=== PATIENT | male | born 1965 | race Caucasian/White ===

== ENCOUNTER 2018-09-14 16:49 | Inpatient (IN) | payer MEDICAID ==
[~2018-09-14] VITALS: Ht 167.6 cm; Wt 78.9 kg
[~2018-09-14 16:49] MED LIST: BENA20TA PO; METO100T33 PO
[2018-09-14 16:59] VITALS: BP 142/101
--- NOTE | 2018-09-14 17:04 | NUR ---
BIB SELF. AAO X4. C/O ANXIETY AND "CARDIAC PROBLEMS". PT STATES HE LOST HIS PLACE OF RESIDENCE AND HIS JOB. PT STATES HE FEELS ANXIOUS AND IS WORRIED THAT HIS HEART RATE IS HIGH AND B/P HIGH. PT STATES THAT HURTING HIMSELF HAS CROSSED HIS MIND AND HAS AN INDEFINITE, VAGUE PLANS. SAFETY PRECAUTIONS INITIATED. TATYANA PINON NOTIFIED. HOB UP. BED SIDE RAILS UP X1. ON LOW BED POSITION, LOCKED.
--- NOTE | 2018-09-14 17:04 | NUR ---
PATIENT AMBULATED TO BED 7.
--- NOTE | 2018-09-14 17:15 | NUR ---
UNABLE TO GIVE URINE AT THIS TIME.
--- NOTE | 2018-09-14 17:20 | NUR ---
DR ROJAS AT PT BEDSIDE
--- NOTE | 2018-09-14 17:32 | NUR ---
DO ROJAS RE-EVALUATING PT
[2018-09-14 17:48] LABS: BASOPHILS % (AUTO) 0.5 % (0.0-2.0); EOSINOPHILS # (AUTO) 0.1 K/uL (0-0.4); EOSINOPHILS % (AUTO) 0.6 % (0.0-4.0); HEMATOCRIT 45.3 % (36-52); HEMOGLOBIN 15.3 g/dL (12.0-18.0); LYMPHOCYTES # (AUTO) 1.1 K/uL (2.0-11.5); MEAN CORPUSCULAR HEMOGLOBIN 28 pg (27-31); MEAN CORPUSCULAR HGB CONC 34 g/dL (33-37); MEAN CORPUSCULAR VOLUME 84.2 fL (80-94); MONOCYTES # (AUTO) 0.4 K/uL (0.8-1.0); MONOCYTES % (AUTO) 5.2 % (1.7-9.3); NEUTROPHILS # (AUTO) 6.7 K/uL (1.8-7.7); NEUTROPHILS % (AUTO) 80.7 % (42.2-75.2); PLATELET COUNT (AUTO) 318 K/uL (140-450); RED BLOOD CELL COUNT(AUTO) 5.38 MIL/uL (4.20-6.10); RED CELL DISTRIBUTION WIDTH 13.6 % (11.6-13.7); WHITE BLOOD COUNT (AUTO) 8.4 K/uL (4.8-10.8)
[2018-09-14] MEDS ORDERED: HYDR12.5 PO (17:52)
[2018-09-14] MEDS ORDERED: SERT50TA1 (17:52)
[2018-09-14] MEDS ORDERED: BENA20TA PO (17:52)
[2018-09-14] MEDS ORDERED: METO100T33 (17:52)
[2018-09-14 17:59] LABS: CARBON DIOXIDE 25.3 mmol/L (21-32); CHLORIDE 107 mmol/L (98-107); CREATININE 1.2 mg/dL (0.7-1.3); GFR ARICAN-AMERICAN 81 mL/min (>90); GLUCOSE 185 mg/dL (74-106); POTASSIUM 3.3 mmol/L (3.5-5.1); SODIUM SERUM 144 mmol/L (136-145); UREA NITROGEN, BLOOD 24 mg/dL (7-18)
[2018-09-14 18:06] LABS: ACETAMINOPHEN < 0.5 ug/ml (10-30); ALBUMIN 3.9 g/dL (3.4-5.0); ASPARTATE AMINOTRANSFERASE 31 U/L (15-37); SALICYLATE < 2.8 mg/dL (2.8-20.0); TOTAL BILIRUBIN 0.3 mg/dL (0.0-1.0)
[2018-09-14 19:07] LABS: APPEARANCE,URINE CLEAR (CLEAR); BILIRUBIN,URINE NEGATIVE (NEGATIVE); BLOOD, URINE NEGATIVE (NEGATIVE); COLOR,URINE YELLOW (YELLOW); LEUKOCYTE ESTERASE ,URINE NEGATIVE (NEGATIVE); NITRITE, URINE NEGATIVE (NEGATIVE); UGLUCOSE NEGATIVE (NEGATIVE)
--- NOTE | 2018-09-14 19:10 | NUR ---
Pt report given to POLLY Johnson. Transfer of care at this time.
--- NOTE | 2018-09-14 19:12 | NUR ---
RECEIVED REPORT FROM POLLY PORTILLO.
[2018-09-14 19:13] LABS: BARBITURATE, URINE NEG. ng/ml (NEG <=200); BENZODIAZEPINE, URINE NEG. ng/mL (NEG <=200); CANNABINOID, URINE NEG. ng/mL (NEG <=50); COCAINE, URINE NEG. ng/mL (NEG <=300); OPIATE, URINE NEG. ng/mL (NEG <=2000); PHENCYCLIDINE SCREEN,URINE NEG. ng/mL (NEG <=25)
--- NOTE | 2018-09-14 19:30 | NUR ---
Patient is awake, alert, with flat affect. Appears to be resting comfortably in bed. Vital Signs within normal limits. Respirations even and unlabored. No complaints at this time.
--- NOTE | 2018-09-14 20:00 | NUR ---
OFFERED PT DINNER. PT DENIES FOOD STATING HE DOESN'T FEEL LIKE EATING AT THIS TIME. PT ACCEPTED JUCIE AND ICE WATER.
--- NOTE | 2018-09-14 21:00 | NUR ---
Patient appears to be resting comfortably in bed. Vital Signs within normal limits. Respirations even and unlabored.
--- NOTE | 2018-09-14 22:36 | NUR ---
REPORT GIVEN TO TELEPSYCH PSYCHIATRIST.
--- NOTE | 2018-09-14 23:00 | NUR ---
SPOKE W/ TELE-PHYCHIATRIST, DR. CORTEZ WHO RECOMMENDS THAT PT BE EVALUATED ON INPATIENT BASIS FOR SI. TANMAY MARTINEZ NOTIFIED.
--- NOTE | 2018-09-14 23:45 | NUR ---
Packet has been received. Call Center will begin working on bed placement for patient. Call Center will notify [facility] if a bed does become available tonight.
[2018-09-14] MEDS ORDERED: DOCUSATE SODIUM 100 MG GELCAP PO PRN (23:55)
[2018-09-14] MEDS ORDERED: HYDROcodone/APAP 5/325 MG 1 TAB TAB PO PRN (23:55)
[2018-09-14] MEDS ORDERED: ACETAMINOPHEN 325 MG TAB PO PRN (23:55)
[2018-09-14] MEDS ORDERED: LORazepam 2 MG/ML VIAL IM/IVP PRN (23:55)
[2018-09-14] MEDS ORDERED: MORPHINE SULFATE 2 MG/ML SYR IVP PRN (23:55)
[2018-09-14] MEDS ORDERED: ONDANSETRON 4 MG/2 ML VIAL IM/IVP PRN (23:55)
[2018-09-14] MEDS ORDERED: ZOLPIDEM 5 MG TAB PO PRN (23:55)
[2018-09-15 00:05] VITALS: BP 133/79
--- NOTE | 2018-09-15 00:05 | NUR ---
RECIEVED PT FROM ER PER WHEELCHAIR ,AWAKE ,ALERT , ORIENTED X4 ,MED SURG ,WITH C/O ANXIETY WITH IV CANNULA ON LFA 20G INTACT AND PATENT. AMBULATORY .MRSA COLLECTED AND SENT TO LAB, V/S STABLE, ADMISSION ASSESSMENT DONE.BED IN LOW POSITION ,SIDE RAILS UP X2.ON SAFETY PRECAUTION.WILL FOLLOW UP ADMITTING ORDER
--- NOTE | 2018-09-15 00:09 | NUR ---
PATIENT ADMITTED TO [facility] ROOM 109-B. UNDER THE CARE OF DR JURADO, REPORT GIVEN TO RN. STABLE DURING WHEELCHAIR TRANSPORT.
--- NOTE | 2018-09-15 00:19 | NUR ---
Called the following contracted psych facilities regarding bed placement. Currently no beds available at this time. [facility], spoke with Tushar. [facility], spoke with Mariama. [facility], spoke with Mare. Packet was faxed. [facility], spoke with Emmie. [facility], spoke with Seymour. [facility], spoke with Brionna. [facility], spoke with Florence. Packet was faxed. Adina Doan [facility], spoke with Shanika. They can not accept patients that are on the medical floor only through ED. Mohamud Larson [facility], spoke with Levi. Call Center will continue to look for placement for patient. Addendum: 09/15/18 at 0434 by oDra Lubin After speaking with patient RN on the floor. Patient was voluntary in the ED for psychiatric admission. At this time patient is admitted to telemetry floor and not medically cleared and is pending to see the psychiatrist. Call Center will hold off on looking for placement and will wait until the telemetry calls the Call Center after evaluation.
[2018-09-15 00:46] LABS: MAGNESIUM 1.9 mg/dL (1.8-2.4); PHOSPHORUS 2.7 mg/dL (2.5-4.9); THYROID STIMULATING HORMONE 0.99 uIU/mL (0.34-3.74)
[2018-09-15 01:02] LABS: PROTHROMBIN TIME 9.9 secs (10.8-13.4)
[2018-09-15] MEDS ORDERED: POTASSIUM CHLORIDE 10 MEQ TABER PO ONE (02:45)
--- NOTE | 2018-09-15 02:54 | NUR ---
CALLED CALL SERVICE AND ABLE TO TALKED TO SCOTTIE. MADE AWARE ABOUT CONSULT FOR SUICIDAL IDEATION .
--- NOTE | 2018-09-15 05:11 | NUR ---
MARIN TERRY .PATIENT SLEEPING .WILL CONTINUE TO MONITOR.
--- NOTE | 2018-09-15 06:48 | NUR ---
CHEST X RAY DONE AT BEDSIDE .NO DISCOMFORT NOTED AT THIS TIME.
--- NOTE | 2018-09-15 07:21 | NUR ---
RECIEVED PT FROM POLISHING PAD MOUNTER RN. PT IS [id number] ,MED SURG ,WITH C/O ANXIETY WITH IV CANNULA ON LFA 20G INTACT AND PATENT. AMBULATORY .MRSA COLLECTED AND SENT TO LAB, V/S STABLE, ADMISSION ASSESSMENT DONE.BED IN LOW POSITION ,SIDE RAILS UP X2.ON SAFETY PRECAUTION.WILL FOLLOW UP ADMITTING ORDER Addendum: 09/15/18 at 0808 by Vinita Weber RN RECIEVED PT FROM POLISHING PAD MOUNTER RN. PT IS AAOX4 ,MED SURG ,WITH C/O ANXIETY WITH IV CANNULA ON LFA 20G INTACT AND PATENT. AMBULATORY. V/S STABLE.BED IN LOW POSITION ,SIDE RAILS UP X2.ON SAFETY PRECAUTION. WILL ROUND FREQUENTLY ON PT. BED IN LOWEST POSITION, CALL LIGHT WITHIN REACH.
--- NOTE | 2018-09-15 07:27 | NUR ---
ENDORSED TO AM SHIFT NURSE FOR CONTINUITY OF CARE. STABLE V/S.
[2018-09-15 07:37] LABS: BASOPHILS # (AUTO) 0.1 K/uL (0.00-0.22); EOSINOPHILS % (AUTO) 0.6 % (0.0-4.0); HEMATOCRIT 42.9 % (36-52); HEMOGLOBIN 14.1 g/dL (12.0-18.0); LYMPHOCYTES # (AUTO) 1.2 K/uL (2.0-11.5); LYMPHOCYTES % (AUTO) 18.6 % (20.5-51.1); MEAN CORPUSCULAR HEMOGLOBIN 28 pg (27-31); MEAN CORPUSCULAR HGB CONC 33 g/dL (33-37); MEAN CORPUSCULAR VOLUME 84.7 fL (80-94); MONOCYTES # (AUTO) 0.7 K/uL (0.8-1.0); MONOCYTES % (AUTO) 10.2 % (1.7-9.3); NEUTROPHILS # (AUTO) 4.4 K/uL (1.8-7.7); NEUTROPHILS % (AUTO) 69.6 % (42.2-75.2); PLATELET COUNT (AUTO) 269 K/uL (140-450); RED BLOOD CELL COUNT(AUTO) 5.06 MIL/uL (4.20-6.10); RED CELL DISTRIBUTION WIDTH 13.5 % (11.6-13.7); WHITE BLOOD COUNT (AUTO) 6.4 K/uL (4.8-10.8)
[2018-09-15 07:39] LABS: ANION GAP 12.3 (8-16); CARBON DIOXIDE 28.8 mmol/L (21-32); CREATININE 1.1 mg/dL (0.7-1.3); POTASSIUM 4.1 mmol/L (3.5-5.1)
[2018-09-15 08:00] VITALS: BP 131/79
--- NOTE | 2018-09-15 08:16 | NUR ---
PATIENT HAS BEEN SCREENED AND CATEGORIZED LOW NUTRITION RISK. PATIENT WILL BE SEEN WITHIN 7 DAYS OF ADMISSION. 09/21/[address]
[2018-09-15 08:31] LABS: CHOL/HDL RATIO 4.6 (1-4.5)
[2018-09-15] MEDS ORDERED: SERTRALINE 50 MG TAB PO SCH (09:00)
--- NOTE | 2018-09-15 09:24 | NUR ---
ADMINISTERED MORPHINE FOR PAIN AND ZOFRAN FOR N/V. PT TOLERATED THEM WELL. ALL OTHER NEEDS CURRENTLY MET. WILL CONTINUE TO ROUND FREQUENTLY ON PT. BED IN LOWEST POSITION, CALL LIGHT WITHIN REACH. Addendum: 09/15/18 at 1338 by Vinita Weber RN WRONG PT.
[2018-09-15] MEDS: METOPROLOL 50 MG TAB PO SCH (10:02)
[2018-09-15] MEDS: HYDROCHLOROTHIAZIDE 25 MG TAB PO SCH (10:03)
[2018-09-15] MEDS: BENAZEPRIL 20 MG TAB PO SCH (10:04)
--- NOTE | 2018-09-15 11:47 | NUR ---
PT RESTING IN BED. NO COMPLAINTS OF SOB OR PAIN. WILL ROUND FREQUENTLY ON PT. BED IN LOW POSITION, CALL LIGHT WITHIN REACH. Addendum: 09/15/18 at 1340 by Vinita Weber RN WRONG PT
--- NOTE | 2018-09-15 13:36 | NUR ---
PT ASKING WHEN EGD PROCEDURE WILL TAKE PLACE. NO SPECIFIC TIME HAS BEEN SET. PT WAS TOLD THIS INFORMATION. SHE VERBALIZED UNDERSTANDING. WILL ROUND FREQUENTLY ON PT. Addendum: 09/15/18 at 1341 by Vinita Weber RN WRONG PT
--- NOTE | 2018-09-15 15:47 | NUR ---
PT RESTING IN BED. SITTER AT BEDSIDE 1:1. NO SIGNS OF PAIN OR DISTRESS AT THIS TIME. WILL CONTINUE TO ROUND FREQUENTLY .
[2018-09-15 16:00] VITALS: BP 118/67
--- NOTE | 2018-09-15 17:34 | NUR ---
PT ASLEEP IN BED. NO SIGNS OF DISTRESS OR PAIN NOTED. SITTER AT BEDSIDE 1:1.
--- NOTE | 2018-09-15 19:30 | NUR ---
RECEIVED BEDSIDE REPORT FROM DAY SHIFT NURSE DAHIANA RN, PT STABLE, NO DISTRESS NOTED, IV TO L FA 20G PATENT, INTACT, SL , PT ON ROOM AIR, NO SOB, PT STATED HAVING NO SUICIDAL IDEATION AT THIS MOMENT, PT CALM AND COOPERATIVE, SITTER AT BEDSIDE, INITIAL ASSESSMENT DONE, ALL SAFETY PRECAUTION MET, CALL LIGHT WITHIN REACH, WILL CONTINUE TO MONITOR.
--- NOTE | 2018-09-15 19:48 | NUR ---
ENDORSED PT TO JIG FILLER FOR CONTINUITY OF CARE. PT IN STABLE CONDITION AT THIS TIME.
--- NOTE | 2018-09-15 21:30 | NUR ---
DR. COREAS AT BEDSIDE TALKING AND EVALUATING PT.
--- NOTE | 2018-09-15 23:28 | NUR ---
PT SLEEPING, V/S TAKEN, WNL, PT CALM AND COOPERATIVE, SITTER AT BEDSIDE, WILL CONTINUE TO MONITOR.
[2018-09-15 23:29] VITALS: BP 126/67
--- NOTE | 2018-09-16 01:28 | NUR ---
PT SLEEPING, NO DISTRESS NOTED, SITTER AT BEDSIDE, WILL CONTINUE TO MONITOR.
--- NOTE | 2018-09-16 07:05 | NUR ---
RECEIVED BEDSIDE REPORT FROM CITY DISPATCH SUPERVISOR NURSE. PATIENT IS AWAKE, ALERT AND ORIENTEDX4. NO SIGNS OF DISTRESS ON RA. SKIN IS INTACT. PATIENT IS AMBULATORY AND CONTINENT. L FA 20G SL. CLEAN, DRY AND INTACT. PATIENT HAS NO COMPLAINTS AT THIS TIME. BED IN LOW POSITION. 1:1 SITTER AT BEDSIDE. WILL CONTINUE TO MONITOR THE PATIENT
[2018-09-16 08:00] VITALS: BP 122/73
[2018-09-16 08:07] LABS: BASOPHILS # (AUTO) 0.1 K/uL (0.00-0.22); BASOPHILS % (AUTO) 1.9 % (0.0-2.0); EOSINOPHILS # (AUTO) 0.1 K/uL (0-0.4); EOSINOPHILS % (AUTO) 1.8 % (0.0-4.0); HEMATOCRIT 45.2 % (36-52); HEMOGLOBIN 15.5 g/dL (12.0-18.0); LYMPHOCYTES # (AUTO) 1.3 K/uL (2.0-11.5); LYMPHOCYTES % (AUTO) 26.2 % (20.5-51.1); MEAN CORPUSCULAR HEMOGLOBIN 29 pg (27-31); MEAN CORPUSCULAR HGB CONC 34 g/dL (33-37); MEAN CORPUSCULAR VOLUME 84.3 fL (80-94); MONOCYTES # (AUTO) 0.4 K/uL (0.8-1.0); MONOCYTES % (AUTO) 8.6 % (1.7-9.3); NEUTROPHILS # (AUTO) 3.1 K/uL (1.8-7.7); NEUTROPHILS % (AUTO) 61.5 % (42.2-75.2); PLATELET COUNT (AUTO) 264 K/uL (140-450); RED BLOOD CELL COUNT(AUTO) 5.36 MIL/uL (4.20-6.10); RED CELL DISTRIBUTION WIDTH 13.3 % (11.6-13.7)
[2018-09-16 08:23] LABS: ANION GAP 12.7 (8-16); CARBON DIOXIDE 28.5 mmol/L (21-32); CREATININE 1.1 mg/dL (0.7-1.3); POTASSIUM 4.2 mmol/L (3.5-5.1)
[2018-09-16 08:31] LABS: MAGNESIUM 1.9 mg/dL (1.8-2.4); PHOSPHORUS 3.6 mg/dL (2.5-4.9)
[2018-09-16] MEDS: BENAZEPRIL 20 MG TAB PO SCH (09:07)
[2018-09-16] MEDS: METOPROLOL 50 MG TAB PO SCH (09:08)
[2018-09-16] MEDS: HYDROCHLOROTHIAZIDE 25 MG TAB PO SCH (09:08)
[2018-09-16] MEDS: ARIPiprazole 10 MG TAB PO SCH (09:09)
--- NOTE | 2018-09-16 09:12 | NUR ---
ADMINISTERED MEDS. EDUCATED ON SIDE EFFECTS. PATIENT TOLERATED WELL. NO COMPLAINTS AT THIS TIME. PATIENT WANTED MORE WATER AND ICE, PROVIDED PATIENT WITH WATER AND ICE. WILL CONTINUE TO MONITOR. 1:1 SITTER AT BEDSIDE
--- NOTE | 2018-09-16 11:57 | NUR ---
PATIENT IS READING A BOOK. NO SIGNS OF DISTRESS. 1:1 SITTER AT BEDSIDE. WILL CONTINUE TO MONITOR
--- NOTE | 2018-09-16 12:30 | NUR ---
PATIENT IS EATING. NO SIGNS OF DISTRESS. WILL CONTINUE TO MONITOR THE PATIENT
--- NOTE | 2018-09-16 14:20 | NUR ---
PATIENT IN ROOM. NO SIGNS OF DISTRESS. 1:1 SITTER AT BEDSIDE. WILL CONTINUE TO MONITOR THE PATIENT
[2018-09-16 16:00] VITALS: BP 101/63
--- NOTE | 2018-09-16 16:40 | NUR ---
PATIENT READING A BOOK. NO SIGNS OF DISTRESS. 1:1 SITTER AT BEDSIDE. WILL CONTINUE TO MONITOR
--- NOTE | 2018-09-16 17:25 | NUR ---
PATIENT WANTED HIS BOOK FROM SECURITY. SECURITY BROUGHT IT TO THE PATIENT
--- NOTE | 2018-09-16 18:25 | NUR ---
Called the following facilities with no bed availability: Joseph [facility], s/w Kaylie [facility], s/w Dilip [facility], s/w Emmie Ibrahim, s/w Dominik Ibrahim, called twice, no answer Adina Doan, s/w Olimpia
--- NOTE | 2018-09-16 19:25 | NUR ---
RECEIVED REPORT AT BEDSIDE FROM ROE RN DAYSHIFT NURSE FOR CONTINUITY OF CARE, PT IN STABLE CONDITION.
--- NOTE | 2018-09-16 19:26 | NUR ---
GAVE BEDSIDE REPORT TO COMPREHENSIVE ADVISOR NURSE. PATIENT ENDORSED IN STABLE CONDITION
--- NOTE | 2018-09-16 20:00 | NUR ---
PT IN BED WITH CALM DEMEANOR. PT REQUESTING A SHOWER AND NEW EAR PLUGS. HE IS AOX4 AND HAS NO C/O OF PAIN OR DISTRESS NOTED. V/S FOLLOWS T 97.4 P 55 R 18 B/P 120/70 02 96% ON ROOM AIR.
--- NOTE | 2018-09-16 21:00 | NUR ---
PT IV SITE ON LEFT F/A 20G NOTED WITH SLIGHT REDNESS AROUND IV SITE. IV SITE WAS DISCONTINUED, CANNULA CAME OUT INTACT. PT THEN AMBULATED TO SHOWER ROOM STEADILY WITH SITTER MAINTAINING SAFETY PRECAUTIONS. PT AGREED TO HAVE A NEW IV SITE PUT IN AFTER THE SHOWER.
--- NOTE | 2018-09-16 21:30 | NUR ---
PT BACK FROM SHOWER ALL SAFETY PRECAUTIONS MAINTAINED. PT AMBULATED STEADILY BACK TO ROOM. AT THIS TIME, PT ASKED IF HE REALLY NEEDED ANY MEDICATION THROUGH THE IV SITE AND IF NOT, HE WOULD RATHER NOT HAVE ANOTHER IV SITE. PT SAID THAT WHEN THEY REALLY NEED TO GIVE HIM MEDICATION VIA IV HE WILL LET THEM PUT IN ANOTHER SITE.
[2018-09-17] VITALS: BP 115/68
--- NOTE | 2018-09-17 00:15 | NUR ---
PT IN BED V/S FOLLOWS T 97.4 P 54 R 18 B/P 115/68 02 98% ON ROOM AIR. SITTER AT BEDSIDE , NO S/S OF PAIN OR DISTRESS NOTED.
--- NOTE | 2018-09-17 03:40 | NUR ---
PT IN BED ASLEEP NO S/S OF PAIN OR DISTRESS NOTED. SITTER AT BEDSIDE.
--- NOTE | 2018-09-17 06:36 | NUR ---
PT SLEEPING IN BED NO S/S OF PAIN OR DISTRESS NOTED.
--- NOTE | 2018-09-17 07:12 | NUR ---
RECEIVED ENDORSEMENT FROM RESERVATIONS AND TICKETING AGENT NURSE. PATIENT IS SLEEPING EASILY AROUSABLE. RESPIRATIONS ARE EVEN AND UNLABORED ON ROOM AIR. DENIES ANY PAIN AT THIS TIME. PLAN OF CARE WAS REVIEWED WITH PATIENT. PATIENT VERBALIZED UNDERSTANDING. SAFETY MEASURES IN PLACE, SITTER AT BEDSIDE.
--- NOTE | 2018-09-17 07:15 | NUR ---
REPORT GIVEN TO ASTER RN DAYSHIFT NURSE AT BEDSIDE FOR CONTINUITY OF CARE, PT IN STABLE CONDITION.
[2018-09-17 08:00] VITALS: BP 122/71
[2018-09-17] MEDS: METOPROLOL 50 MG TAB PO SCH (08:52)
[2018-09-17] MEDS: HYDROCHLOROTHIAZIDE 25 MG TAB PO SCH (08:52)
[2018-09-17] MEDS: BENAZEPRIL 20 MG TAB PO SCH (08:53)
[2018-09-17] MEDS: ARIPiprazole 10 MG TAB PO SCH (08:53)
--- NOTE | 2018-09-17 08:56 | NUR ---
PATIENT IS RESTING IN BED, READING A BOOK. NO SIGNS OF DISTRESS NOTED AT THIS TIME. PATIENT IS CALM AND INTERACTING APPROPRIATELY. NO OTHER NEEDS AT THIS TIME. WILL CONTINUE TO MONITOR.
--- NOTE | 2018-09-17 09:31 | NUR ---
NOTIFIED SECURITY OF PATIENTS REQUEST TO GET HIS WALLET. IS AWARE. PATIENT OBTAINED HIS WALLET
--- NOTE | 2018-09-17 10:05 | NUR ---
PATIENT IS SLEEPING IN BED, EASILY AROUSABLE. NO SIGNS OF DISTRESS NOTED AT THIS TIME. NO OTHER NEEDS AT THIS TIME.
--- NOTE | 2018-09-17 11:30 | NUR ---
PATIENT IS RESTING IN BED. NO SIGNS OF DISTRESS NOTED. NO OTHER NEEDS AT THIS TIME.
--- NOTE | 2018-09-17 11:58 | NUR ---
OBEY 1: 1 AT BEDSIDE, ALLISON, PATIENT CALM AND SLEEPING COMFORTABLY IN HIS SIDE. NO VERBALIZATIONS OF HALLUCINATIONS NOR SUICIDAL IDEATION. Addendum: 09/18/18 at 0033 by Christie Purcell RN WRONG TIME
--- NOTE | 2018-09-17 12:13 | NUR ---
PATIENT IS VISIBLY ANGRY, STATES "THERE IS NOTHING TO ATOP ME FROM LEAVING". C/O THAT HE IS NOT ABLE TO WALK AROUND. PATIENT ALSO REFUSED HIS LUNCH. ATTEMPTED TO CALM DOWN PATIENT AND EXPLAIN THE REASON WHY HE IS NOT ALLOWED TO GO OUT OF ROOM. PATIENT STILL VISIBLY ANGRY AND THREATENING TO LEAVE. CHARGE NURSE WILL SPEAK WITH PATIENT. WILL CONTINUE TO MONITOR.
--- NOTE | 2018-09-17 13:07 | NUR ---
DR. COY CAME TO SEE PATIENT TO EXPLAIN HIS HOLD. PATIENT VERBALIZED UNDERSTANDING.
--- NOTE | 2018-09-17 15:15 | NUR ---
PATIENT IS SLEEPING IN BED, EASILY AROUSABLE. NO DISTRESS NOTED AT THIS TIME. WILL CONTINUE TO MONITOR.
[2018-09-17 16:00] VITALS: BP 120/79
--- NOTE | 2018-09-17 16:10 | NUR ---
PATIENT IS RESTING IN BED READING A BOOK. NO DISTRESS NOTED AT THIS TIME. NO OTHER NEEDS AT THIS TIME.
--- NOTE | 2018-09-17 17:22 | NUR ---
PATIENT IS LAYING DOWN IN BED READING A BOOK. NO SIGNS OF DISTRESS NOTED AT THIS TIME. NO OTHER NEEDS AT THIS TIME.
--- NOTE | 2018-09-17 18:01 | NUR ---
PATIENT IS LAYING DOWN IN BED. NO DISTRESS NOTED AT THIS TIME. NO OTHER NEEDS AT THIS TIME.
--- NOTE | 2018-09-17 19:07 | NUR ---
ENDORSED TO B2B APPOINTMENT SETTER NURSE VERONICA FOR CONTINUITY OF CARE. PATIENT IS STABLE. NO DISTRESS NOTED AT THIS TIME.
--- NOTE | 2018-09-17 19:08 | NUR ---
RECEIVED ENDORSEMENT FROM AM SHIFT NURSE. PATIENT AWAKE, ALERT, ORIENTED X 4. PT IS IN THE ROOM , IN BED READING A BOOK, RESPIRATIONS ARE EVEN AND UNLABORED ON ROOM AIR. DENIES ANY PAIN AT THIS TIME. PLAN OF CARE WAS REVIEWED WITH PATIENT. PATIENT VERBALIZED UNDERSTANDING. SAFETY MEASURES IN PLACE, SITTER AT BEDSIDE.
--- NOTE | 2018-09-17 19:22 | NUR ---
TALK TO PT PT SAID HE HAD NOT SLEPT LAST NIGHT, AND THAT PT NEXT DOOR WAS TALKING TOO MUCH AND HE CAN'T SLEEP. PT ANXIOUS AND REQUESTS FOR ANTI ANXIETY MEDS TONIGHT, SO THAT HE CAN SLEEP. WILL MEDICATE LATER.
[2018-09-17 19:24] VITALS: BP 120/68
--- NOTE | 2018-09-17 19:30 | NUR ---
PT AMBULATORY GOING TO THE BATHROOM, VOIDED 1X
--- NOTE | 2018-09-17 20:38 | NUR ---
ORDERED FOR SHOWER PER PATIENT'S REQUEST.
--- NOTE | 2018-09-17 20:40 | NUR ---
WILL ASSIST PT IN THE SHOWER
--- NOTE | 2018-09-17 21:00 | NUR ---
AT SHOWER, STANDING, AMBULATORY, PT GIVEN GOWN, DRESSED HIMSELF. RETURNED BACK TO ROOM SAFELY.
[2018-09-17] MEDS: LORazepam 1 MG TAB PO PRN (21:45)
--- NOTE | 2018-09-17 21:45 | NUR ---
ADMINISTERED ATIVAN PO ORDERED FOR ANXIETY. PT ANXIOUS, BOTHERED PT'S BY NEXT DOOR CONSTANTLY TALKING AND WALKING TOWARDS SITTER
--- NOTE | 2018-09-17 22:02 | NUR ---
At this time there are still no vacancy at any of the designated facilities
--- NOTE | 2018-09-17 22:30 | NUR ---
PT SLEEPING BUT EASILY AROUSABLE BY NOISES, TOSING AND TURNING TRIED TO MINIMIZE ENVIRONMENTAL NOISE BY LOWERING TV VOLUME OF NEXT DOOR, HALLWAY LIGHTS OFF, ROOM LIGHTS OFF. WILL CONTINUE TO MONITOR Addendum: 09/18/18 at 0035 by Christie Purcell RN TOSSING
--- NOTE | 2018-09-17 23:58 | NUR ---
SITTER 1: 1 AT BEDSIDE, REFINERY OPERATOR POLYMERIZATION PLANT, PATIENT CALM AND SLEEPING COMFORTABLY IN HIS SIDE. NO VERBALIZATIONS OF HALLUCINATIONS NOR SUICIDAL IDEATION.
--- NOTE | 2018-09-18 00:26 | NUR ---
RN, SITTER BACK TO POST, PT SLEEPING AT THIS TIME,COMFORTABLE AND CALM
--- NOTE | 2018-09-18 03:34 | NUR ---
PT SLEEPING AT HIS SIDE,NO COMPLAINTS AT THIS TIME.
[2018-09-18 03:36] VITALS: BP 123/70
--- NOTE | 2018-09-18 03:45 | NUR ---
PT AWAKE, WENT TO THE TOILET VOIDED 2ND TIME
[2018-09-18 04:50] VITALS: BP 135/81
--- NOTE | 2018-09-18 05:00 | NUR ---
PT C/O OF NOISES HE SAID THAT HE WASNT ABLE TO SLEEP FOR 5 DAYS NOW, AND THAT HE WILL MAKE A COMMENT ON THE ENVIRONMENTAL NOISE. ASSURED PT THAT WE TRIED TO KEEP THE NOISE DOWN BUT THERE ARE SOME INEVITABLE NOISE FROM THE [employer], AND THAT HIS ROOM IS NEAR THE NURSES STATION W/ THE MAIN MONITOR FOR ALL CALL LIGHTS. AND NURSES TRYING TO COMMUNICATE W/ THEIR PATIENTS . ALSO HAD A LOT OF PATIENTS WHEELED IN FOR ADMISSION BY THE ED, MIGHT HAVE MADE LOUD NOISES.
[2018-09-18] MEDS: LORazepam 1 MG TAB PO PRN (05:01)
--- NOTE | 2018-09-18 05:01 | NUR ---
GIVEN ATIVAN PO 1 MG Q6 ORDERED.
--- NOTE | 2018-09-18 07:01 | NUR ---
PT AWAKE, ALERT O X 4, AMBULATORY TOWARDS THE BATHROOM. VOIDED AGAIN. PT NO SOB, NO COMPLAINTS OF PAIN, NO HALLUCINATIONS. PT FEELS STILL SLEEPY AND WENT BACK TO BED AFTER. WILL ENDORSE TO NEXT SHIFT
--- NOTE | 2018-09-18 07:10 | NUR ---
RECEIVED BEDSIDE SHIFT REPORT FROM NIGHT NURSE. PT IS RESTING IN BED AOX4 WITH NO COMPLAINTS OF PAIN. LUGGAGE ATTENDANT AT DOOR OF ROOM. PT HAS NO IV. PT IS BREATHING UNLABORED AND SYMMETRICAL. PT HAS NO REQUESTS AT THIS TIME AND STATES HE IS FEELING BETTER TODAY THEN YESTERDAY AND STATES HE HAS NO ANXIETY OR SUICIDAL THOUGHTS AT THIS TIME.
--- NOTE | 2018-09-18 08:35 | NUR ---
Security notified to bring pt's belongings to room d/t 7660 hold discontinued. Addendum: 09/18/18 at 1905 by Ree Fuller RN Wrong time input. Pls omit note.
[2018-09-18] MEDS: BENAZEPRIL 20 MG TAB PO SCH (09:25)
[2018-09-18] MEDS: ARIPiprazole 10 MG TAB PO SCH (09:26)
[2018-09-18] MEDS: METOPROLOL 50 MG TAB PO SCH (09:26)
[2018-09-18] MEDS: HYDROCHLOROTHIAZIDE 25 MG TAB PO SCH (09:27)
--- NOTE | 2018-09-18 11:08 | NUR ---
Spoke with Billy. Requested Billy send packet with hold and nurses notes so call center can send packet to psych facilities
--- NOTE | 2018-09-18 11:30 | NUR ---
FAXED PATIENT MEDICAL INFORMATION, FACE SHEET, 8840 HOLD, PROGRESS NOTES, HISTORY AND PHYSICAL, TO [facility] AT [phone]
[2018-09-18] MEDS ORDERED: ARIP5TAB8 PO (11:47)
--- NOTE | 2018-09-18 12:05 | NUR ---
PATIENT WAS PACING IN DOORWAY OF ROOM. WHEN ASKED IF THE PATIENT NEEDED SOMETHING HE STATED HE WANTED TO KNOW WHY HE WAS STILL HERE. INFORMED PATIENT THAT HE WOULD NEED TO BE SEEN BY THE PSYCHIATRIC DOCTOR REGARDING HIS EXPIRING 5150 BEFORE WE COULD PLAN HIS DISCHARGE. PATIENT STATED HE HAS BEEN HERE LONG ENOUGH AND STARTED SCREAMING THAT HE IS GOING TO LEAVE ANYWAYS AND IS SICK OF BEING HERE. PATIENT LEFT ROOM AND STARTED YELLING AT STAFF THAT HE WAS GOING NO MATTER WHAT. [employer] CALLED AND LOCAL POLICE NOTIFIED. DR. ANSARI CAME TO BEDSIDE AND DISCUSSED PLAN OF CARE WITH PATIENT AND ANSWERED HIS QUESTIONS AND INFORMED HIM OF PENDING CLEARANCE FROM PSYCHIATRIC DOCTOR. PATIENT THEN SITTING IN BED NO LONGER SCREAMING. LOCAL POLICE THEN CAME TO BEDSIDE AND SPOKE TO PATIENT WELL AND ANSWERED HIS QUESTIONS AND EDUCATED HIM ON 5150 HOLD.
--- NOTE | 2018-09-18 12:05 | NUR ---
PER HEAD OF SECURITY ADA, PT STATED " IF YOU DO NOT LET ME GO, NO ONE WILL BE SAFE HERE". [employer] ACTIVATED AND CONTACTED SHANIQUE SWANSON. SPOKE WITH VERÓNICA, STATED THEY ARE ON THEIR WAY. ADA SECURITY MADE AWARE.
--- NOTE | 2018-09-18 13:50 | NUR ---
PT IS LAYING DOWN IN BED WITH NO OBVIOUS SIGNS OF ACUTE DISTRESS.
--- NOTE | 2018-09-18 13:58 | NUR ---
SPOKE WITH LUISANA AT THE [facility]. SHE INFORMED ME THAT NONE OF THE NOTES STATED RATHER OR NOT THE PATIENT WAS MEDICALLY CLEARED. INFORMED HER THAT DR. ANSARI HAD VERBALLY STATED THE PATIENT WAS MEDICALLY CLEAR TO DISCHARGE AND THAT HE WAS REMAINING PENDING CLEARANCE FROM THE PSYCHIATRIC DOCTOR.
--- NOTE | 2018-09-18 15:40 | NUR ---
PT RESTING IN BED. PT IS IN POSITIVE AFFECT WITH NO COMPLAINTS OR REQUESTS AND STATES HE APPRECIATES THE HELP AT THIS TIME. PT HAS NO OBVIOUS SIGNS OF DISTRESS.
[2018-09-18 16:00] VITALS: BP 134/85
--- NOTE | 2018-09-18 16:30 | NUR ---
PT RESTING IN BED NO OBVIOUS SIGNS OF DISTRESS. BREATHING UNLABORED.
[2018-09-18] MEDS ORDERED: METO100T33 PO (16:57)
--- NOTE | 2018-09-18 17:55 | NUR ---
PT LAYING DOWN IN BED NO OBVIOUS SIGNS OF DISTRESS, BREATHING UNLABORED AND SYMMETRICAL.
--- NOTE | 2018-09-18 18:30 | NUR ---
Dr. Metcalf at bedside to see pt. Per Dr. Metcalf, pt is cleared from 5150 & may discharge home. Pt verbalized understanding & agree to wait for discharge papers.
--- NOTE | 2018-09-18 18:35 | NUR ---
Security notified to bring pt's belongings to room d/t 5150 hold discontinued.
--- NOTE | 2018-09-18 18:50 | NUR ---
Written & verbal discharge instructions provided to pt. Pt verbalized understanding & agree with discharge plans. Security arrived to give pt belongings. Per pt, he will take the bus home. Bus pass provided by house wirer helper.
--- NOTE | 2018-09-18 19:00 | NUR ---
Pt discharged home at this time. Amb off unit with steady gait. Pt cheerful & stable. All belongings with pt upon departure.
== END 2018-09-18 19:00 | disposition home or self-care (01) | DRG 425 ==
LOC: MED 16:49 → MTU 23:49
PROVIDERS: ADMIT General Practice; ATTEND General Practice
DX: E87.6 Hypokalemia (principal); N17.9 Acute kidney failure, unspecified; R45.851 Suicidal ideations; I48.91 Unspecified atrial fibrillation; F32.9 Major depressive disorder, single episode, unspecified; I10 Essential (primary) hypertension; R79.89 Other specified abnormal findings of blood chemistry; F41.9 Anxiety disorder, unspecified; Z59.0 Homelessness; G47.00 Insomnia, unspecified; E78.5 Hyperlipidemia, unspecified
CPT/HCPCS: 36415; 71045; 80048; 80053; 80305; 81003; 83036; 83690; 83735; 84100; 84134; 84443; 84484; 85025; 85610; 85730; 87081; 93005; 99285; G0480; G0482; J2060; Q0092

== ENCOUNTER 2018-10-02 06:20 | Emergency (ER) | payer MEDICAID ==
[~2018-10-02] VITALS: Ht 165.1 cm; Wt 79.8 kg
[~2018-10-02 06:20] MED LIST changes: +ARIP5TAB8 PO; +HYDR12.5 PO
--- NOTE | 2018-10-02 06:28 | NUR ---
PT TAKEN TO BED 11
[2018-10-02 06:32] VITALS: BP 129/86
--- NOTE | 2018-10-02 06:42 | NUR ---
Pt presents to ED with complaints of cough x 7 weeks intermittently. Pt states he losing sleep due to cough and reports that now phlegm production has increased over past few weeks with blood tinged mucus. No signs of respiratory distress. Patient speaking in full clear sentences.
--- NOTE | 2018-10-02 06:43 | NUR ---
Dr. Escamilla examining patient.
--- NOTE | 2018-10-02 06:45 | NUR ---
X-Ray at bedside.
--- NOTE | 2018-10-02 06:46 | NUR ---
Huy josé in [facility] - 10/02/18 at 0646 by [facility] X-Ray at bedside.
--- NOTE | 2018-10-02 06:59 | NUR ---
Pt report given to Altagracia MATIAS. Transfer of care at this time.
--- NOTE | 2018-10-02 07:00 | NUR ---
REPORT RECEIVED FROM POLLY BOURGEOIS FOR TRANSFER OF CARE. PT AAO X4. FULL CLEAR SPEECH. PT DENIES SOB. VSS.
--- NOTE | 2018-10-02 07:00 | NUR ---
Dr. Gómez examining patient.
--- NOTE | 2018-10-02 07:25 | NUR ---
Note undone in EDM - 10/02/18 at 0736 by [facility] Patient discharged with v/s stable. Written and verbal after care instructions given and explained. Patient alert, oriented and verbalized understanding of instructions. Ambulatory with steady gait. All questions addressed prior to discharge. ID band removed. Patient advised to follow up with PMD. Rx of Theron Rubio, Azithromycin, Flonase Nasal [place], Claritin-D extended release given. Patient educated on indication of medication including possible reaction and side effects. Opportunity to ask questions provided and answered.
--- NOTE | 2018-10-02 07:30 | NUR ---
Patient given written and verbal discharge instructions and verbalizes understanding. Given copies of tests performed during visit. Patient is awake, alert and oriented. Ambulatory with steady gait. Refuses offer of fdc placement. Given list of available shelters in surrounding areas.
[2018-10-02 07:33] VITALS: BP 114/77
--- NOTE | 2018-10-02 07:33 | NUR ---
Patient discharged with v/s stable. Written and verbal after care instructions given and explained. Patient alert, oriented and verbalized understanding of instructions. Ambulatory with steady gait. All questions addressed prior to discharge. ID band removed. Patient advised to follow up with PMD. Rx of Tessalon Perles, Azithromycin, Flonase Nasal [place], Claritin-D extended release given. Patient educated on indication of medication including possible reaction and side effects. Opportunity to ask questions provided and answered.
== END 2018-10-02 07:33 | disposition home or self-care (01) ==
LOC: MED 06:20
DX: J32.9 Chronic sinusitis, unspecified (principal); D17.1 Benign lipomatous neoplasm of skin and subcutaneous tissue of trunk; I49.3 Ventricular premature depolarization; I48.91 Unspecified atrial fibrillation; I10 Essential (primary) hypertension; Z79.899 Other long term (current) drug therapy
CPT/HCPCS: 71045; 99283; Q0092